=== PATIENT | female | born 1975 | race Caucasian/White ===

== ENCOUNTER 2020-05-25 13:46 | Emergency (ER) | payer BC ==
[~2020-05-25] VITALS: Ht 160 cm; Wt 108.0 kg
--- NOTE | 2020-05-25 14:35 | NUR ---
Port xray and vascular at bedside.
[2020-05-25 15:06] VITALS: BP 126/83
[2020-05-25] MEDS ORDERED: ibuprofen tablet 400 MG TABLET PO ONE (15:15)
--- NOTE | 2020-05-25 15:15 | NUR ---
Spoke with Dr. Steward regarding need for pain medication prior to discharge. Dr. Steward gave verbal order for motrin 600 mg PO once now.
[2020-05-25] MEDS ORDERED: ibuprofen 200mg tablet PO ONE (15:20)
== END 2020-05-25 15:22 | disposition home or self-care (01) ==
LOC: ER 13:47
DX: M25.562 Pain in left knee (principal); I10 Essential (primary) hypertension; G89.29 Other chronic pain; R51.9 Headache, unspecified; Z87.891 Personal history of nicotine dependence; Z72.89 Other problems related to lifestyle; Z88.8 Allergy status to other drugs, medicaments and biological substances
CPT/HCPCS: 73564; 93971; 99284